=== PATIENT | female | born 1975 | race African-American/Black ===

== ENCOUNTER 2021-03-12 20:29 | Emergency (ER) | payer OTHER | END 2021-03-12 23:12 | disposition home or self-care (01) | LOC: ED 20:29 | DX: M54.6 Pain in thoracic spine (principal); M54.5 Low back pain; M54.2 Cervicalgia; I10 Essential (primary) hypertension; M62.830 Muscle spasm of back; V89.2XXA Person injured in unspecified motor-vehicle accident, traffic, initial encounter; Y93.89 Activity, other specified; Y92.488 Other paved roadways as the place of occurrence of the external cause; Y99.8 Other external cause status ==